=== PATIENT | male | born 1965 | race Caucasian/White ===

== ENCOUNTER 2020-07-13 08:45 | Outpatient (REF) | payer OTHER, SELFPAY ==
[2020-07-13 12:29] LABS: SARS COV2 PCR INHOUSE POSITIVE (Negative)
== END 2020-07-13 08:46 | disposition home or self-care (01) ==
LOC: HO.LAB 08:45
PROVIDERS: Visit Provider Internal Medicine
DX: Z20.822 Contact with and (suspected) exposure to COVID-19 (principal)
CPT/HCPCS: C9803; U0003

== ENCOUNTER → 2021-05-02 10:23 | Outpatient (BNVA) | payer OTHER, SELFPAY | PROVIDERS: PCP Physician Assistant; Visit Provider Orthopaedic Surgery | DX: G56.03 Carpal tunnel syndrome, bilateral upper limbs (principal); M65.312 Trigger thumb, left thumb | CPT/HCPCS: J1100 ==

== ENCOUNTER 2021-05-05 07:56 | Outpatient (REF) | payer OTHER, SELFPAY ==
--- NOTE | ~2021-05-05 | XR_ITS ---
EXAMINATION: XR SHOULDER , LEFT CLINICAL INFORMATION: Pain COMPARISON: None available at the time of this dictation. TECHNIQUE: AP external rotation, Grashey, scapular Y, and axillary views of the shoulder. FINDINGS: BONES: There is no fracture or dislocation, no osteolytic or osteoblastic lesion. JOINTS: Glenohumeral joint is properly positioned. There is mild degenerative osteoarthritis of the acromioclavicular joint. SOFT TISSUE AND INCLUDED LUNG: Normal. Very small hyperdense density projecting over the left lung apex likely calcified nodule. XR/XR shoulder LT min 2V IMPRESSION: No fracture or dislocation. Mild DJD AC joint.
== END 2021-05-05 07:57 | disposition home or self-care (01) ==
LOC: HO.HOSX 07:56
PROVIDERS: Visit Provider Physician Assistant
DX: M75.42 Impingement syndrome of left shoulder (principal)
CPT/HCPCS: 20610; 73030; J1040

== ENCOUNTER 2021-05-18 08:29 | Outpatient (REF) | payer OTHER, SELFPAY ==
--- NOTE | 2021-05-18 | EMG_ITS ---
Bilateral median and ulnar motor and sensory studies were performed. Bilateral radial sensory studies were performed and paraspinal muscles were tested. IMPRESSION: Main finding on this testing was [id number] bilateral ulnar neuropathy across cubital tunnel. There was also mild right median neuropathy affecting sensory component on the right side while left-sided median study was normal. MD JENIFER Cuellar/KAYLIN / [id number]
== END 2021-05-18 08:30 | disposition home or self-care (01) ==
LOC: HO.NEURO 08:29
PROVIDERS: PCP Physician Assistant; Visit Provider Physician Assistant
DX: G56.03 Carpal tunnel syndrome, bilateral upper limbs (principal)
CPT/HCPCS: 95886; 95911

== ENCOUNTER 2021-05-18 08:53 | Day surgery (SDC) | payer OTHER, SELFPAY ==
[2021-05-18 09:51] VITALS: BP 153/94; PULSE 75; RESP 18; TEMP 36.4; O2SAT 96
--- NOTE | 2021-05-18 13:08 | MHC.SHP ---
Pre-Procedural Eval Section A Date of Service: 05/18/21 The patient is an INPATIENT: No Changes since office visit: No Cold of Flu in the past 2 weeks, No New Medical Problems, No Changes in Medication and No Patient answered all questions The History & Physical has been completed within 30 days and I have reviewed it.: Yes Section B Chief Complaint: carpal tunnel syndrome Allergies: Allergies Allergy/AdvReac Type Severity Reaction Status Date / Time No Known Allergies Allergy Verified 05/18/21 09:57 Plan I have reviewed the history and physical and performed a pertinent physical examination on my patient. No changes have occurred unless specified.
--- NOTE | 2021-05-18 13:08 | W.PM.OPN ---
Operative Note Operative Note Date of Service: 05/18/21 Narrative: Preop diagnosis: 1. Right Carpal tunnel syndrome Postop diagnosis: same Procedure: 1. Right Carpal tunnel release Surgeon: Archana Chowdhury MD Anesthesia: local block using 1% lidocaine with epinephrine Findings: Thickened transverse carpal ligament. Of interest, there was a longitudinally and slightly oblique vessel noted deep to the palmaris fascia but superficial to the transverse carpal ligament and crossing from proximal ulnar to distal radial direction over the carpal tunnel. A possible persistent median artery, though others that I have seen of been deep to the transverse carpal ligament. It was mobilized and protected during the case. EBL: Less than 5 mL Specimens: None Complications: None Disposition: Brought to recovery room in stable condition Plan: Follow-up for 10-14 days for wound check and suture removal Indications: The patient is 55 years old, with right carpal tunnel syndrome that has been unresponsive to nonoperative management. The risks and benefits of operative treatment including but not limited to risk of damage to blood vessels, nerves, tendons, infection, persistent pain, persistent symptoms, or possible need for additional surgery were discussed with the patient and the patient wishes to proceed with surgery. Procedure: Once consent was obtained a local block was performed using a combination of 1% lidocaine with epinephrine. The patient was then brought back to the operating suite and placed on the operative table in supine position. A tourniquet was applied to the proximal aspect of the right upper extremity and the limb was prepped and draped in a standard surgical fashion. Once assured that we had a good block, a 1.5 cm longitudinal incision was made centered over the carpal tunnel. The incision was made through the skin to the subcutaneous tissues using a #15 blade. Dissection was made down to the level of the transverse carpal ligament with care being taken to protect the palmar cutaneous nerve. Of interest, there was a longitudinally and slightly oblique vessel noted deep to the palmaris fascia but superficial to the transverse carpal ligament and crossing from proximal ulnar to distal radial direction over the carpal tunnel.? A possible persistent median artery, though others that I have seen of been deep to the transverse carpal ligament.? It was mobilized and protected during the case. Once the transverse carpal ligament was clearly visualized, a longitudinal incision was made in the transverse carpal ligament 1st using a #15 blade, then using tenotomy scissors under direct visualization. Care was taken to look for and protect the motor branch of the median nerve when seen in this area. Once satisfied with our carpal tunnel release the wound was copiously irrigated with normal saline and hemostasis was obtained with a brief period of local pressure. The skin edges were reapproximated with some 5.0 nylon suture material and a sterile dressing was applied. The patient appears to have tolerated the procedure well and with no complications. All digits were well vascularized at the conclusion of the case.
--- NOTE | 2021-05-18 13:09 | MHC.SHP ---
Pre-Procedural Eval Section A Date of Service: 05/18/21 The patient is an INPATIENT: No Changes since office visit: No Cold of Flu in the past 2 weeks, No New Medical Problems, No Changes in Medication and No Patient answered all questions The History & Physical has been completed within 30 days and I have reviewed it.: Yes Section B Chief Complaint: Right carpal tunnel syndrome Details of Present Illness: Right carpal tunnel syndrome. Patient had his EMG nerve conduction study this morning and brought a copy of the report with him. It shows that he also has right cubital tunnel syndrome. I talked with him about this and about the fact that he may also require a right cubital tunnel release. I offered that we could cancel today's procedure and potentially perform both procedures at 1 time. He said he very much wants to get the right carpal tunnel release done today AP because the numbness in his right thumb index and middle finger is bothering him quite a bit. Understands that he may end up needing another procedure under anesthesia at a later date. Today's procedure is under local. Allergies: Allergies Allergy/AdvReac Type Severity Reaction Status Date / Time No Known Allergies Allergy Verified 05/18/21 09:57 Plan I have reviewed the history and physical and performed a pertinent physical examination on my patient. No changes have occurred unless specified.
[2021-05-18 13:50] VITALS: BP 142/86; PULSE 69; RESP 18; O2SAT 99
== END 2021-05-18 13:55 | disposition home or self-care (01) ==
PROVIDERS: PCP Physician Assistant; Visit Provider Orthopaedic Surgery
PROC: (CPT 64721; principal; 2021-05-18 12:00)
DX: G56.01 Carpal tunnel syndrome, right upper limb (principal)
CPT/HCPCS: 64721

== ENCOUNTER → 2021-05-31 09:37 | Outpatient (BNVA) | payer OTHER, SELFPAY | PROVIDERS: PCP Physician Assistant; Visit Provider Orthopaedic Surgery ==

== ENCOUNTER → 2021-09-08 12:44 | Outpatient (BNVA) | payer OTHER, SELFPAY | PROVIDERS: PCP Physician Assistant; Visit Provider Physician Assistant | DX: M75.42 Impingement syndrome of left shoulder (principal) | CPT/HCPCS: 20610; J1040 ==